=== PATIENT | male | born 1965 | race Caucasian/White ===

== ENCOUNTER 2021-09-14 14:08 | Emergency (ER) | payer OTHER ==
[~2021-09-14] VITALS: Ht 172 cm; Wt 83.0 kg
[2021-09-14 14:20] LABS: HEMATOCRIT 48 % (40-54); HEMOGLOBIN 17.6 g/dL (13.3-17.7); MEAN CORPUSCULAR HEMOGLOBIN 32 pg (25-34); MEAN CORPUSCULAR HGB CONC 37 g/dL (32-36); MEAN CORPUSCULAR VOLUME 88 fL (80-99); MEAN PLATELET VOLUME 10.1 fL (9.0-12.2); NEUTROPHILS % (AUTO) 79 % (42-75); PLATELET COUNT 286 10^3/uL (130-400); WHITE BLOOD COUNT 12.5 10^3/uL (4.3-11.0)
[2021-09-14 14:21] LABS: BASOPHILS # (AUTO) 0.1 10^3/uL (0.0-0.1); BASOPHILS % (AUTO) 1 % (0-10); EOSINOPHILS % (AUTO) 0 % (0-10); LYMPHOCYTES % (AUTO) 16 % (12-44); MONOCYTES # (AUTO) 0.5 X 10^3 (0.0-1.0); MONOCYTES % (AUTO) 4 % (0-12); NEUTROPHILS # (AUTO) 9.9 X 10^3 (1.8-7.8)
[2021-09-14] MEDS ORDERED: LORazepam INJ 2 MG/ML (ATIVAN) VIAL IVP STA (14:21)
[2021-09-14] MEDS ORDERED: NS IV 1000 ML 1,000 ML IV STA (14:21)
--- NOTE | 2021-09-14 14:23 | ED Chest Pain ---
General Chief Complaint: Chest Pain Stated Complaint: CHEST PAINF Source: patient History of Present Illness Date Seen by Provider: Sep 14, 2021 Time Seen by Provider: 14:10 Initial Comments 56-year-old male presenting with concerns for chest tightness. He states that he has not felt right since this morning. He did take a full 325 aspirin this morning. He does have a history of asthma and uses inhaler as well. He had unloaded several 1000 pounds of corn himself this morning and was able to do that without difficulty. However this afternoon he was having more chest tightness so he came to the emergency department to be evaluated. He had called his primary physician and the [facility] and they had recommended he come to be evaluated for cardiac disease. He had his father at the age of 79 from sudden heart attack. Otherwise there is no sudden cardiac or disease under the age of 50. He denies any prior heart problems. He denies any fever, cough, shortness of breath, nausea, headache, diaphoresis, wheezing. Nothing symptomatically a tightness in his chest worse or better. He did try his inhaler but it did not help. Walking into the emergency department did not make any difference on the tightness. Severity/Quality: moderate Radiation: no radiation Prior CP/Workup: no prior chest pain, no prior cardiac workup ASA po CANVAS SHRINKER: Yes (1 this am and 1 this pm) NTG SL CANVAS SHRINKER: No Allergies and Home Medications Allergies Coded Allergies: Penicillins (Verified Allergy, Severe, Anaphylaxis, 09/14/21) Patient Home Medication List Home Medication List Reviewed: Yes ALPRAZolam (ALPRAZolam) 0.25 Mg Tablet, 0.25 MG PO Q8H PRN for ANXIETY Prescribed by: MAHI LARKIN on 09/14/21 1544 Review of Systems Review of Systems Constitutional: No chills, No diaphoresis, No fever EENTM: No Symptoms Reported Respiratory: Cough (dry non productive) Cardiovascular: See HPI; Denies Edema; Palpitations; Denies Syncope Gastrointestinal: See HPI; Denies Abdominal Pain, Denies Vomiting Genitourinary: No Symptoms Reported Musculoskeletal: no symptoms reported Skin: No rash Psychiatric/Neurological: Denies Numbness, Denies Paresthesia Hematologic/Lymphatic: Denies Blood Clots Past [id number]-[id number] Hx Patient Social History Tobacco Use?: No Alcohol Use?: Yes Alcohol type: Beer Alcohol Frequency: Couple times a week Past Medical History Respiratory: Yes Asthma Cardiac: Yes High Cholesterol, Hypertension Physical Exam Vital Signs Vital Signs - First Documented 09/14/21 09/14/21 14:17 15:57 Temp 36.8 Pulse 110 Resp 20 B/P (MAP) 148/76 (100) Pulse Ox 98 O2 Delivery Room Air Capillary Refill : Height, Weight, BMI Height: '" Weight: lbs. oz. kg; BMI Method: General Appearance: WD/WN, Anxious HEENT: PERRL/EOMI, Pharynx Normal Neck: Full Range of Motion, Normal Inspection, Non Tender, Supple; No Carotid Bruit Respiratory: Chest Non Tender, Lungs Clear, Normal Breath Sounds, No Accessory Muscle Use, No Respiratory Distress Cardiovascular: Regular Rate, Rhythm, No Murmur, Normal Peripheral Pulses Gastrointestinal: Normal Bowel Sounds, No Pulsatile Mass, Non Tender, Soft Rectal: Deferred Extremity: Normal Capillary Refill, Normal Inspection, No Pedal Edema Neurologic/Psychiatric: Alert, Oriented x3 Skin: Normal Color, Warm/Dry Progress/Results/Core Measures Results/Orders Lab Results Laboratory Tests Test 09/14/21 14:12 Range/Units White Blood Count 12.5 H 4.3-11.0 10^3/uL Red Blood Count 5.46 4.30-5.52 10^6/uL Hemoglobin 17.6 13.3-17.7 g/dL Hematocrit 48 40-54 % Mean Corpuscular Volume 88 80-99 fL Mean Corpuscular Hemoglobin 32 25-34 pg Mean Corpuscular Hemoglobin Concent 37 H 32-36 g/dL Red Cell Distribution Width 12.6 10.0-14.5 % Platelet Count 286 130-400 10^3/uL Mean Platelet Volume 10.1 9.0-12.2 fL Immature Granulocyte % (Auto) 1 % Neutrophils (%) (Auto) 79 H 42-75 % Lymphocytes (%) (Auto) 16 12-44 % Monocytes (%) (Auto) 4 0-12 % Eosinophils (%) (Auto) 0 0-10 % Basophils (%) (Auto) 1 0-10 % Neutrophils # (Auto) 9.9 H 1.8-7.8 X 10^3 Lymphocytes # (Auto) 2.0 1.0-4.0 X 10^3 Monocytes # (Auto) 0.5 0.0-1.0 X 10^3 Eosinophils # (Auto) 0.0 0.0-0.3 10^3/uL Basophils # (Auto) 0.1 0.0-0.1 10^3/uL Immature Granulocyte # (Auto) 0.1 0.0-0.1 10^3/uL Prothrombin Time 12.4 12.2-14.7 SEC INR Comment 0.9 0.8-1.4 Activated Partial Thromboplast Time 28 24-35 SEC Sodium Level 133 L 135-145 MMOL/L Potassium Level 3.7 3.6-5.0 MMOL/L Chloride Level 92 L 98-107 MMOL/L Carbon Dioxide Level 24 21-32 MMOL/L Anion Gap 17 H 5-14 MMOL/L Blood Urea Nitrogen 11 7-18 MG/DL Creatinine 1.08 0.60-1.30 MG/DL Estimat Glomerular Filtration Rate 71 BUN/Creatinine Ratio 10 Glucose Level 90 70-105 MG/DL Calcium Level 10.2 H 8.5-10.1 MG/DL Corrected Calcium 8.5-10.1 MG/DL Magnesium Level 1.5 L 1.6-2.4 MG/DL Total Bilirubin 0.9 0.1-1.0 MG/DL Aspartate Amino Transf (AST/SGOT) 15 5-34 U/L Alanine Aminotransferase (ALT/SGPT) 19 0-55 U/L Alkaline Phosphatase 84 40-136 U/L Troponin I < 0.30 <0.30 NG/ML Pro-B-Type Natriuretic Peptide 5.2 <75.0 PG/ML Total Protein 7.9 6.4-8.2 GM/DL Albumin 5.1 H 3.2-4.5 GM/DL Lipase 36 8-78 U/L My Orders Orders - MAHI LARKIN MD Cbc With Automated Diff (09/14/21 14:10) Magnesium (09/14/21 14:10) Chest 1 View Ap/Pa Only (09/14/21 14:10) Ekg Tracing (09/14/21 14:10) Comprehensive Metabolic Panel (09/14/21 14:10) Protime With Inr (09/14/21 14:10) Partial Thromboplastin Time (09/14/21 14:10) O2 (09/14/21 14:10) Monitor-Rhythm Ecg Trace Only (09/14/21 14:10) Ed Iv/Invasive Line Start (09/14/21 14:10) Lipase (09/14/21 14:10) Troponin I Fs (09/14/21 14:10) Probnp Fs (09/14/21 14:10) Lorazepam Injection (Ativan Injection) (09/14/21 14:21) Ns Iv 1000 Ml (Sodium Chloride 0.9%) (09/14/21 14:21) Vital Signs/I&O 09/14/21 09/14/21 14:17 15:57 Temp 36.8 36.8 Pulse 110 102 Resp 20 18 B/P (MAP) 148/76 (100) 122/79 Pulse Ox 98 O2 Delivery Room Air Room Air Progress Progress Note #1: Progress Note With his complaint of chest tightness will obtain electrocardiogram, chest x- ray, labs including cardiac enzymes. Try giving IV fluids for hydration, Ativan for anxiety. He already took 325 mg aspirin while this episode of chest tightness started this afternoon. Differential diagnosis includes myocardial infarction, anxiety, asthma exacerb ation, pneumonia, bronchitis, upper respiratory infection Progress Note #2: Progress Note Labs came back without acute significant abnormality other than mild elevation of his white blood cell count to 12.5. His cardiac enzymes did not demonstrate any acute myocardial infarction considering he has had discomfort in his chest for several hours throughout the morning. He had had no acute process on his chest x-ray. His electrocardiogram was not showing acute ischemia. He had low magnesium at 1.5. Patient reported improved symptoms with treatment here in the ED. Reassured patient that from a cardiac standpoint his enzymes were negative and no indication of an acute heart attack. His anxiety certainly could be playing a role in addition to some asthma. The prednisone may be contributing to elevated heart rate and blood pressure. He plans to stop the prednisone that he was taking for his dry cough. Encouraged to follow-up with his primary provider for possible risk stratification testing. Prescribed few low-dose Xanax so he has something available for anxiety as needed. Initial ECG Impression Date: Sep 14, 2021 Initial ECG Impression Time: 14:09 Initial ECG Rate: 102 Initial ECG Rhythm: S.Tach Initial ECG Comparisson: No Previous ECG Available Comment Sinus tachycardia with heart rate 102 bpm. NM interval [address] elevation. QT interval 342 ms with a QTc interval 446 ms. There is no prior tracing available for comparison. Diagnostic Imaging Diagonstic Imaging: Xray Plain Films/CT/US/NM/MRI: chest Comments [facility] [place], [place] NAME: MAURA MORGAN JR [facility] REC#: [id number] PT STATUS: REG ER : 1965 PHYSICIAN: MAHI LARKIN MD ADMIT DATE: 09/14/21/ER FS Signed Date of Exam:09/14/21 CHEST 1 VIEW AP/PA ONLY EXAMINATION: Chest 1 view HISTORY: Chest pain. COMPARISON: None available. FINDINGS: The lung volumes are normal. No focal consolidation is seen. No large pleural effusion or pneumothorax is seen. The cardiomediastinal silhouette is normal in size and contour. No acute osseous abnormality is seen. IMPRESSION: 1. No acute pleuroparenchymal process. Dictated by: Dictated on workstation # [id number] Dict: 09/14/21 1453 Trans: 09/14/21 1505 [facility] [id number] Interpreted by: APRIL ZAVALETA DO Electronically signed by: APRIL ZAVALETA DO 09/14/21 1505 Reviewed: Reviewed by Me Departure Impression Primary Impression: Chest tightness Additional Impressions: Hypomagnesemia Anxiety Disposition: 01 HOME, SELF-CARE Condition: Stable Departure-Patient Inst. Decision time for Depature: 15:44 Referrals: NO,LOCAL PHYSICIAN (PCP/Family) Primary Care Physician Patient Instructions: Anxiety, Adult ED, Chest Pain, Adult ED, Low Magnesium Level Add. Discharge Instructions: Try to increase Magnesium rich foods in your diet. Stay well hydrated and get plenty of fluids. Stop taking the prednisone as the steroid can cause elevated White blood cells and higher heart rate as well as may contribute to your chest tightness. Your doctor may want you to perform some stress testing to look for other reasons for your chest tightness with your family history. If you have worsening symptoms, chest pain with nausea, pain going into your neck or jaw, then get rechecked. If you are feeling tightness and anxious again you could try taking the low dose Alprazolam (Xanax) to help with anxiety until you can get back with your doctor. All discharge instructions reviewed with patient and/or family. Voiced understanding. Scripts ALPRAZolam (ALPRAZolam) 0.25 Mg Tablet 0.25 MG PO Q8H PRN for ANXIETY for 4 Days, #12 TAB 0 Refills Prov: MAHI LARKIN MD 09/14/21 MAHI LARKIN MD Sep 14, 2021 14:23
[2021-09-14 14:32] LABS: INR 0.9 (0.8-1.4); PROTHROMBIN TIME PATIENT 12.4 SEC (12.2-14.7)
[2021-09-14 14:39] LABS: CARBON DIOXIDE 24 MMOL/L (21-32); CHLORIDE 92 MMOL/L (98-107); POTASSIUM 3.7 MMOL/L (3.6-5.0); SODIUM 133 MMOL/L (135-145)
[2021-09-14 14:40] LABS: ALANINE AMINOTRANSFERASE 19 U/L (0-55); ALBUMIN 5.1 GM/DL (3.2-4.5); ALKALINE PHOSPHATASE 84 U/L (40-136); BILIRUBIN,TOTAL 0.9 MG/DL (0.1-1.0); BUN/CREATININE RATIO 10; CALCIUM 10.2 MG/DL (8.5-10.1); CREATININE SERUM 1.08 MG/DL (0.60-1.30); GFR ESTIMATED 71; GLUCOSE 90 MG/DL (70-105); LIPASE 36 U/L (8-78); MAGNESIUM 1.5 MG/DL (1.6-2.4); TOTAL PROTEIN 7.9 GM/DL (6.4-8.2)
--- NOTE | 2021-09-14 14:58 | Diagnostic Imaging Report ---
EXAMINATION: Chest 1 view HISTORY: Chest pain. COMPARISON: None available. FINDINGS: The lung volumes are normal. No focal consolidation is seen. No large pleural effusion or pneumothorax is seen. The cardiomediastinal silhouette is normal in size and contour. No acute osseous abnormality is seen. IMPRESSION: 1. No acute pleuroparenchymal process. Dictated by: Dictated on workstation # [id number]
[2021-09-14] MEDS ORDERED: ALPR0.254 PO (15:44)
[2021-09-14 15:57] VITALS: BP 122/79
== END 2021-09-14 15:57 | disposition home or self-care (01) ==
LOC: ER FS 14:11
DX: R07.89 Other chest pain (principal); E83.42 Hypomagnesemia; F41.9 Anxiety disorder, unspecified; J45.909 Unspecified asthma, uncomplicated; I10 Essential (primary) hypertension
CPT/HCPCS: 36415; 71045; 80053; 83690; 83735; 83880; 84484; 85025; 85610; 85730; 93005; 93041